=== PATIENT | female | born 1985 | race Caucasian/White ===

== ENCOUNTER 2016-04-29 06:06 | Emergency (ER) | payer MEDICAID ==
[2016-04-29 06:16] VITALS: RESP 17; TEMP 97.9; O2SAT 99
--- NOTE | 2016-04-29 06:31 | ED PDOC ---
HPI: Chest Pain Time Seen by Provider: 04/29/16 06:16 Chief Complaint (Nursing): Chest Pain Chief Complaint (Provider): chest pain History Per: Patient History/Exam Limitations: no limitations Onset/Duration Of Symptoms: Hrs (6) Current Symptoms Are (Timing): Intermittent Episodes Additional Complaint(s): 30yo female with no PMHx presents to the ED with c/o acute onset intermittent chest pain with associated palpitations and SOB x 6 hours. Patient reports symptoms became worse throughout the night prompting ED visit. Of note, patient recently started diet pill which she doubled dosage of as of yesterday. Provider looked at diet pill and found active ingredient to be caffeine. Patient denies n/v, diaphoresis, fever, cough. Past Medical History Reviewed: Historical Data, Nursing Documentation, Vital Signs Vital Signs: Last Vital Signs Temp 97.9 F 04/29/16 06:10 Pulse 86 04/29/16 06:10 Resp 17 04/29/16 06:10 BP 124/81 04/29/16 06:10 Pulse Ox 99 04/29/16 06:35 - Medical History PMH: No Chronic Diseases - Surgical History Surgical History: Tonsillectomy - Family History Family History: States: No Known Family Hx - Social History Current smoker - smoking cessation education provided: No Alcohol: Occasional Drugs: Denies - Home Medications Home Medications: Ambulatory Orders Medication Instructions Recorded Ibuprofen [Motrin] 600 mg PO Q6 PRN #20 tab 04/30/14 - Allergies Allergies/Adverse Reactions: Allergies Allergy/AdvReac Type Severity Reaction Status Date / Time No Known Allergies Allergy Verified 04/30/14 02:53 Review of Systems ROS Statement: Except As Marked, All Systems Reviewed And Found Negative Constitutional: Positive for: Other (no diaphoresis ). Negative for: Fever Cardiovascular: Positive for: Chest Pain, Palpitations Respiratory: Positive for: Shortness of Breath. Negative for: Cough Gastrointestinal: Negative for: Nausea, Vomiting Physical Exam - Reviewed Nursing Documentation Reviewed: Yes Vital Signs Reviewed: Yes - Physical Exam Appears: Positive for: Well, No Acute Distress Head Exam: Positive for: ATRAUMATIC, NORMAL INSPECTION, NORMOCEPHALIC Skin: Positive for: Normal Color, Warm, Dry Eye Exam: Positive for: Normal appearance, EOMI, PERRL ENT: Positive for: Normal ENT Inspection Neck: Positive for: Normal, Painless ROM, Supple Cardiovascular/Chest: Positive for: Regular Rate, Rhythm. Negative for: Murmur , Tachycardia Respiratory: Positive for: Normal Breath Sounds. Negative for: Wheezing, Respiratory Distress Gastrointestinal/Abdominal: Positive for: Normal Exam, Bowel Sounds, Soft. Negative for: Tenderness Back: Positive for: Normal Inspection. Negative for: L CVA Tenderness, R CVA Tenderness Extremity: Positive for: Normal ROM. Negative for: Deformity, Swelling Neurologic/Psych: Positive for: Alert, Oriented. Negative for: Motor/Sensory Deficits - ECG O2 Sat by Pulse Oximetry: 99 Pulse Ox Interpretation: Normal (RA) Medical Decision Making Medical Decision Makin: Impression: 30yo female w/ palpitations and chest pain in setting of caffeine use Plan: Labs EKG CXR reassess Patient s/o to Dr. Galindo at 0700 pending labs and re-eval. Scribe Attestation: Documented by Shawn Cifuentes acting as a scribe for Marlon Lara MD. Provider Scribe Attestation: All medical record entries made by the Scribe were at my direction and personally dictated by me. I have reviewed the chart and agree that the record accurately reflects my personal performance of the history, physical exam, medical decision making, and the department course for this patient. I have also personally directed, reviewed, and agree with the discharge instructions and disposition. Disposition - Clinical Impression Clinical Impression: Chest pain - Patient ED Disposition Is Patient to be Admitted: Transfer of Care - Disposition Disposition: Transfer of Care Disposition Time: 07:00 Condition: FAIR Patient Signed Over To: Germán Galindo III Handoff Comments: pending labs and re-eval
[2016-04-29 07:04] LABS: BASO # 0.1 K/uL (0.0-0.2); BASO % 1.2 % (0.0-2.0); EOS # 0.2 K/uL (0.0-0.7); EOS % 1.9 % (0.0-4.0); HEMATOCRIT 36.4 % (34.0-47.0); LYMPH # 4.5 K/uL (1.0-4.3); LYMPH % 44.4 % (20.0-40.0); MEAN CELL VOLUME 87.2 fl (81.0-99.0); MEAN CORPUSCULAR HEMOGLOBIN 28.1 pg (27.0-31.0); MEAN CORPUSCULAR HGB CONC 32.3 g/dL (33.0-37.0); MEAN PLATELET VOLUME 9.6 fl (7.2-11.7); MONO # 0.9 K/uL (0.0-0.8); MONO % 8.5 % (0.0-10.0); NEUT # 4.5 K/uL (1.8-7.0); NRBC % 0.1 % (0.0-0.0); RED CELL DISTRIBUTION WIDTH 14.3 % (11.5-14.5); WHITE BLOOD COUNT 10.2 K/uL (4.8-10.8)
[2016-04-29 07:29] LABS: URINE BACTERIA RARE (<OCC); URINE BILIRUBIN NEGATIVE (NEGATIVE); URINE BLOOD NEGATIVE (NEGATIVE); URINE COLOR YELLOW (YELLOW); URINE GLUCOSE (UA) NEG (Normal); URINE KETONE NEGATIVE (NEGATIVE); URINE LEUKOCYTE ESTERASE NEG Leu/uL (Negative); URINE PROTEIN NEGATIVE (NEGATIVE); URINE UROBILINOGEN 0.2-1.0 mg/dL (0.2-1.0)
[2016-04-29 07:31] LABS: ALB/GLOB RATIO 1.3 (1.0-2.1); ALCOHOL SERUM < 10 mg/dl (0-10); ALKALINE PHOSPHATASE 58 U/L (38-126); ALT/SGPT 29 U/L (9-52); AST/SGOT 23 U/L (14-36); BILIRUBIN,TOTAL 0.6 mg/dl (0.2-1.3); BLOOD UREA NITROGEN 12 mg/dl (7-17); CALCIUM 9.2 mg/dL (8.4-10.2); CARBON DIOXIDE 27 mmol/L (22-30); CHLORIDE 103 mmol/L (98-107); GFR AFRICAN-AMERICAN > 60; GLUCOSE,RANDOM 97 mg/dL (65-105); POTASSIUM 3.7 MMOL/L (3.6-5.0); SODIUM 145 mmol/l (132-148); TOTAL PROTEIN 7.3 G/DL (6.3-8.2)
[2016-04-29 07:44] LABS: THYROID STIMULATING HORMONE 2.73 mIU/ML (0.46-4.68)
--- NOTE | 2016-04-29 07:57 | CARD ---
APPROVED REPORT EKG Measurement Heart [id number] <Conclusion> Normal sinus rhythm Normal ECG
--- NOTE | 2016-04-29 08:00 | RAD ---
HISTORY: chest pain COMPARISON: No prior. FINDINGS: LUNGS: No focal airspace opacity. PLEURA: No significant pleural effusion identified, no pneumothorax apparent. CARDIOVASCULAR: Normal. OSSEOUS STRUCTURES: No significant abnormalities. VISUALIZED UPPER ABDOMEN: Normal. OTHER FINDINGS: None. IMPRESSION: No focal airspace opacity.
--- NOTE | 2016-04-29 08:18 | ED PDOC ---
- Laboratory Results Result Diagrams: 04/29/16 06:50 04/29/16 06:50 - ECG O2 Sat by Pulse Oximetry: 99 (RA) Pulse Ox Interpretation: Normal - Radiology X-Ray: Read By Radiologist (CXR) X-Ray Interpretation: Other (No focal airspace opacity) Medical Decision Making Medical Decision Makin signed over to me by Dimitri Lara MD pending labs, reassess. 0930 Denies any current symptoms. CXR, EKG, labs reviewed. Patient is stable for discharge. Return precautions and follow up instructed. Disposition Counseled Patient/Family Regarding: Studies Performed, Diagnosis, Need For Followup - Clinical Impression Clinical Impression: Chest pain - POA Present On Arrival: None - Disposition Referrals: Avery Houston MD [Primary Care Provider] - Disposition: Routine/Home Disposition Time: 09:30 Condition: FAIR Additional Instructions: Return to ER for any new or worsening symptoms. Avoid dietary supplements unless recommended by your doctor. Instructions: Chest Pain (ED) Additional Comments - Additional Comments Additional Comments: Scribe Attestation: Documented by Jaydon Manzanares acting as a scribe for Germán Galindo DO. Provider Scribe Attestation: All medical record entries made by the Scribe were at my direction and personally dictated by me. I have reviewed the chart and agree that the record accurately reflects my personal performance of the history, physical exam, medical decision making, and the department course for this patient. I have also personally directed, reviewed, and agree with the discharge instructions and disposition.
[2016-04-29 09:44] VITALS: BP 110/70; PULSE 76
== END 2016-04-29 09:42 | disposition home or self-care (01) ==
LOC: H.ER 06:06
DX: R07.9 Chest pain, unspecified (principal)